=== PATIENT | male | born 1945 | race Caucasian/White ===

== ENCOUNTER 2020-12-11 16:20 | Emergency (ER) | payer MEDICARE, OTHER ==
[2020-12-11 16:28] VITALS: BP 166/86
[2020-12-11] MEDS ORDERED: TETANUS/DIPHTHERIA/PERTUSSIS 0.5 ML SYRINGE IM ONE (17:02)
[2020-12-11] MEDS ORDERED: BUFFERED LIDOCAINE 10 ML SYRINGE SUBQ STA (17:02)
[2020-12-11] MEDS ORDERED: BACITRACIN ZINC OINT 1 PACKET TOP STA (17:03)
--- NOTE | 2020-12-11 17:38 | ED Physician Documentation ---
History of Present Illness - Stated complaint Stated Complaint: LT FINGER LAC - Chief complaint Chief Complaint: Laceration - History obtained from History obtained from: Patient - Additonal information Additional information: 5-year-old man with unknown tetanus status presents with avulsed left third finger after chopping carrots. This happened today. Avulsion is superficial. No other injury Review of Systems Skin: reports: Other (avulsion) Musculoskeletal: reports: Extremity pain Neurologic: denies: Focal weakness, Numbness PD PAST MEDICAL HISTORY - Allergies Allergies/Adverse Reactions: Allergies Allergy/AdvReac Type Severity Reaction Status Date / Time No Known Drug Allergies Allergy Verified 12/11/20 16:28 PD ED PE NORMAL - Vitals Vital signs reviewed: Yes - General General: Alert and oriented X 3, No acute distress, Well developed/nourished - HEENT HEENT: Atraumatic, PERRL, EOMI - Neck Neck: Supple, no meningeal sign - Derm Derm: Normal color, Warm and dry, Other (0.5cm superficial avulsion to L third distal tip of palmar finger, actively bleeding) Results - Vitals Vitals: Vital Signs - 24 hr 12/11/20 16:24 Temperature 36.5 C Heart Rate 78 Respiratory 18 Rate Blood Pressure 166/86 H O2 Saturation 97 Oxygen O2 Source Room air Procedures - General procedure General procedure: 3 cc of lidocaine with bicarbonate instilled into the base of left third finger. Extensive irrigation with normal saline. Finger tourniquet applied to left third finger with resolution of bleeding. Dermabond applied and tourniquet removed. EBL minimal. Patient tolerated well. Bacitracin and dressing applied. PD MEDICAL DECISION MAKING - ED course ED course: 75-year-old man presented with a full avulsion to left third finger. Repaired with Dermabond without incident. Return precautions given. Patient will follow up with his primary doctor. Departure - Departure Disposition: 01 Home, Self Care Clinical Impression: Avulsion of finger Condition: Good Instructions: ED Laceration All Comments: You were seen in the ED for an avulsion of your third finger of the L hand. Dermabond glue was applied with relief of bleeding. it will fall off on its own like a scab. Please return to the ED if you have any new or worsening or other concerns. Follow up with your primary doctor.
== END 2020-12-11 17:55 | disposition home or self-care (01) ==
LOC: ED 16:20
DX: S61.213A Laceration without foreign body of left middle finger without damage to nail, initial encounter (principal); W27.2XXA Contact with scissors, initial encounter; Y93.H2 Activity, gardening and landscaping; Y92.007 Garden or yard of unspecified non-institutional (private) residence as the place of occurrence of the external cause; Z23 Encounter for immunization
CPT/HCPCS: 12001; 90471; 90715; 99282; 99283; A9270